=== PATIENT | male | born 1980 | race Two or more races ===

== ENCOUNTER 2017-02-17 10:24 | Emergency (ER) | payer BC ==
[2017-02-17] MEDS ORDERED: OXYMETAZOLINE HCL 0.05% 30 SPRAYS/BOT NS ONE (11:28)
== END 2017-02-17 13:01 | disposition home or self-care (01) ==
LOC: ED 10:24
DX: R05 Cough (principal); R09.82 Postnasal drip
CPT/HCPCS: 99283 ×2; A9270